=== PATIENT | male | born 1945 | race Caucasian/White ===

== ENCOUNTER → 2017-03-08 | Outpatient (CLI) | payer OTHER ==
[~2017-03-08] MED LIST: IOPAMIDOL (ISOVUE-300) 100 ML BTL ONE
== END ==
LOC: FIMAGING 10:15
PROVIDERS: ATTEND Physician Assistant Medical
DX: N28.89 Other specified disorders of kidney and ureter (principal); N28.1 Cyst of kidney, acquired; I86.1 Scrotal varices
CPT/HCPCS: 74178; Q9967; G0103

== ENCOUNTER → 2017-04-05 | Outpatient (CLI) | payer OTHER | LOC: BHFA 11:30 | PROVIDERS: ATTEND Internal Medicine Interventional Cardiology | DX: I49.3 Ventricular premature depolarization (principal); R00.2 Palpitations; I34.0 Nonrheumatic mitral (valve) insufficiency ==

== ENCOUNTER → 2017-04-07 | Outpatient (CLI) | payer OTHER ==
--- NOTE | 2017-04-07 13:35 | PDCARST ---
CAR Stress Test Results Type of Stress Test: Nuclear TM stress test Indication: abnormal ECG/preop Description of Procedure: After informed consent was obtained, pt was exercised according to Payam Protocol. Monitoring was performed with standard stress testing specialist electrode placement. Vital signs were monitored according to protocol throughout the procedure. STRESS EKG AND HEMODYNAMIC DATA. Exercise time: 7: 30 min. This is equivalent to: 8.6 METS. Resting heart rate: 77 bpm. Resting blood pressure: 142/74 mmHg. Resting O2 saturation: 98 %. Peak heart rate: 140 bpm. This is 93% of age predicted maximum heart rate response. Peak blood pressure: 154/74 mmHg. Exercise O2: 96 %. Arrhythmias: PVCs at rest, rare PVC with exertion, PVC triplet in recovery. Reason for termination: The test was stopped due to achieving target heart rate. Symptoms: The patient experienced no typical symptoms of angina during stress or recovery. STRESS TEST ANALYSIS. Baseline ECG: sinus rhythm. Stress ECG: sinus tachycardia. exercise induced ischemic ECG changes: no. Rhythm: rare PVCs noted during exercise and PVC triplet in recovery. Blood pressure: mild resting hypertension with normal blood pressure response to exercise. Exercise tolerance: The patient has normal exercise tolerance adjusted for age and gender. Symptoms: No exercise induced symptoms. Impression: Stress ECG negative for ischemia. The Guillen Treadmill Score is 7, consistent with low cardiovascular risk (<1% annual mortality). Occasional PVCs at rest. Rare PVCs with exertion. 1 PVC triplet in recovery. Conclusion: Await nuclear images.
== END ==
LOC: FIMAGING 11:29
PROVIDERS: ATTEND Internal Medicine Cardiovascular Disease
DX: Z01.810 Encounter for preprocedural cardiovascular examination (principal); E78.5 Hyperlipidemia, unspecified; I49.3 Ventricular premature depolarization
CPT/HCPCS: 78452; 93017; A9500

== ENCOUNTER 2017-04-15 06:53 | Inpatient (IN) | payer OTHER ==
[2017-04-07 12:14] LABS: % IMMATURE GRANULYOCYTES 0.5 % (0.0-1.1); ABSOLUTE IMMATURE GRANULOCYTES 0.04 10^3/uL (0.00-0.10); ADD DIFF? NO; ADD MORPH? NO; ADD SCAN? NO; ATYPICAL LYMPHOCYTE FLAG 20 (0-99); FRAGMENT RBC FLAG 0 (0-99); HEMATOCRIT 44.5 % (40.0-51.0); HEMOGLOBIN 14.9 g/dL (13.7-17.5); LEFT SHIFT FLG 0 (0-99); LIPEMIA HEMOLYSIS FLAG 80 (0-99); MEAN CELL HEMOGLOBIN 30.5 pg (27.9-34.1); MEAN CELL HEMOGLOBIN CONCENTR. 33.5 g/dL (32.4-36.7); MEAN PLATELET VOLUME 10.8 fL (8.7-11.7); PLATELET CLUMPS FLAG 10 (0-99); PLATELET COUNT 226 10^3/uL (150-400); RED BLOOD CELL COUNT 4.89 10^6/uL (4.40-6.38); RED CELL DISTRIBUTION WIDTH 12.4 % (11.5-15.2)
--- NOTE | 2017-04-14 16:05 | GHP ---
[f rep st] PREOP HISTORY AND PHYSICAL DATE OF ADMISSION: 04/15/2017 ADMISSION DIAGNOSIS: Right lower pole renal mass. HISTORY OF PRESENT ILLNESS: This is a 71-year-old gentleman, who presented with hematuria and otherw ise totally asymptomatic with respect to his renal history. He has had a 10 year smoking history and quit at age 32. He had not been evaluated for hematuria prior to seeing us and he had a CAT scan th at showed a 2.3 cm right lower pole mass concerning for possible malignancy. He also had a cystoscop y evaluation that showed he had BPH with an intravesical lobe and he may need to undergo a TUR of the prostate in the future. At the present time, he is admitted for a.m. surgery for robotic assisted r ight partial nephrectomy. MEDICATIONS: Include Advair, fish oil, lovastatin, and Symbicort. ALLERGIES: No known drug allergies. PAST SURGERY HISTORY: Back surgery. PAST MEDICAL HISTORY: Positive for asthma, BPH, bladder diverticulum, melanoma and varicocele. FAMILY HISTORY: Noncontributory. SOCIAL HISTORY: He has moderate alcohol consumption. He is and immunizations are up to date . REVIEW OF SYSTEMS: Negative cardiac, respiratory, GI, and endocrine. He does have nocturia. PHYSICAL EXAMINATION: VITAL SIGNS: Stable. CHEST: Clear. HEART: Regular rate and rhythm. ABDOM EN: Normal. No organomegaly, rebound or guarding. LOWER EXTREMITIES: Normal. LABORATORY DATA: He has had a PSA value of 1.4 in 2009, and 1.64 in 2017. ASSESSMENT/PLAN: At the present time, he is noted to have a right renal mass and he is admitted for robotic assisted right partial nephrectomy. Indication, complications, and risks have been discussed in detail. He also has atherosclerosis of the aorta and iliac vessels, and he has had a cardiac james arance for surgery by Mitzy Dorantes IV, MD and he is to be admitted for this procedure. /[id number]/MODL
[2017-04-15] MEDS ORDERED: ALBUTEROL 60 PUFFS/8 GM MDI IH PRN (07:18)
[2017-04-15] MEDS ORDERED: ceFAZolin 2 GM/DEXTROSE 100 ML IV ONE (07:20)
--- NOTE | 2017-04-15 07:20 | PDHPUP ---
History & Physical Update H&P update statement: This history and physical update is based on an assessment of the patient which was completed after admission or registration (within 24 hours), but prior to the surgery/procedure. H&P update: H&P reviewed & patient examined, no change in patient's condition since H&P completed
[2017-04-15] MEDS ORDERED: LR 1,000 ML IV ONE (07:38)
[2017-04-15] MEDS ORDERED: LIDOCAINE 1% 2 ML INJ ID PRN (07:38)
[2017-04-15] MEDS ORDERED: BUPIVACAINE 0.5% 30 ML SDV ONE (08:27)
[2017-04-15] MEDS ORDERED: THROMBIN (BOVINE) 5,000 UNIT VIAL TP ONE (08:27)
[2017-04-15] MEDS ORDERED: MANNITOL 20% 100 GM/500 ML BAG IV ONE (08:28)
[2017-04-15] MEDS ORDERED: NON-FORMULARY NEW DRUG (Triamcinolone Acetonide [Nasacort] 1 SPRAY) EACHNARE SCH (09:00)
[2017-04-15] MEDS ORDERED: MIDAZOLAM 2 MG/2 ML VIAL IVP ONE (09:04)
--- NOTE | 2017-04-15 09:05 | PDANEPAE ---
ANE History of Present Illness Right kidney tumor ANE Past Medical History - Cardiovascular History Hx Hypertension: No Hx Arrhythmias: No Hx Chest Pain: No Hx Coronary Artery / Peripheral Vascular Disease: No Hx CHF / Valvular Disease: No Hx Palpitations: No Cardiovascular History Comment: NO CP - Pulmonary History Hx COPD: No Hx Asthma/Reactive Airway Disease: Yes Hx Recent Upper Respiratory Infection: No Hx Oxygen in Use at Home: No Hx Sleep Apnea: No Sleep Apnea Screening Result - Last Documented: Negative Pulmonary History Comment: ASTHMA - Neurologic History Hx Cerebrovascular Accident: No Hx Seizures: No Hx Dementia: No - Endocrine History Hx Diabetes: No - Renal History Hx Renal Disorders: No - Liver History Hx Hepatic Disorders: No - Neurological & Psychiatric Hx Hx Neurological and Psychiatric Disorders: No - Cancer History Hx Cancer: No Cancer History Comment: MELANOMA 2011 - Congenital Disorder History Hx Congenital Disorders: No - GI History Hx Gastrointestinal Disorders: No - Other Health History Other Health History: LUMBAR DISC DEGEN. L CIATICA. SPINAL STENOSIS. SCOLIOSIS - Chronic Pain History Chronic Pain: Yes (SCIATICA L) - Surgical History Prior Surgeries: L4-L5 fusion 2015 Dr Lund. Rt shoulder Dr Rea 2010. DAKOTA HERNIA 2012. MELONOMA REM 2011. NASAL SURG 1992 ANE Review of Systems Review of Systems: - Exercise capacity METS (RN): 5 METS ANE Patient History - Allergies Allergies/Adverse Reactions: No Allergies [NKDA] Allergy (Verified 07/16/15 12:19) ENVIRONMENTAL Allergy (Uncoded 04/22/12 13:58) ITCHY EYES - Home Medications Home Medications: Atorvastatin Calcium [Lipitor 40 mg (*)] 40 mg PO DAILY 07/09/15 [Last Taken 11/25 05:40] Fluticasone/Salmeter 100/50Mcg [Advair 100/50 (*)] 1 puffs IH DAILY 07/09/15 [ Last Taken 04/15/17 05:40] Albuterol [Proventil Inhaler HFA (*)] 1 - 2 puffs IH DAILY PRN 03/23/17 [Last Taken 03/16/17] Cholecalciferol Vit D3 [Vitamin D3 (*)] 1,000 units PO DAILY 03/23/17 [Last Taken 04/08/17] Herbals/Supplements -Info Only 1 ea PO DAILY 03/23/17 [Last Taken 04/08/17] Seneca-3 Fatty Acids [Fish Oil 1000 mg (*)] 1,000 mg PO DAILY 03/23/17 [Last Taken 04/08/17] Psyllium Husk (with Sugar) [Metamucil Packet] 1 each PO DAILY 03/23/17 [Last Taken 04/08/17] Triamcinolone Acetonide [Nasacort] 1 spray EACHNARE DAILY 03/23/17 [Last Taken 04/14/17] - NPO status NPO Since - Liquids (Date): 04/14/17 NPO Since - Liquids (Time): 20:30 NPO Since - Solids (Date): 04/14/17 NPO Since - Solids (Time): 19:00 - Smoking Hx Smoking Status: Never smoked - Family Anes Hx Family Hx Anesthesia Complications: NONE ANE Labs/Vital Signs - Labs Result Diagrams: 04/07/17 12:05 - Vital Signs Blood Pressure: 134/87 Heart Rate: 68 Respiratory Rate: 16 O2 Sat (%): 95 Height: 180.34 cm Weight: 83.007 kg ANE Physical Exam - Airway Neck exam: FROM Mallampati Score: Class 2 Mouth exam: normal dental/mouth exam - Pulmonary Pulmonary: no respiratory distress - ASA Status ASA Status: II ANE Anesthesia Plan Anesthesia Plan: general endotracheal anesthesia
[2017-04-15] MEDS ORDERED: MIDAZOLAM 2 MG/2 ML VIAL ONE (09:06)
[2017-04-15] MEDS ORDERED: ROCURONIUM 100 MG/10 ML VIAL ONE (09:09)
[2017-04-15] MEDS ORDERED: LIDOCAINE 2% 5 ML SDV ONE (09:09)
[2017-04-15] MEDS ORDERED: HYDROmorphONE/DILAUDID 2 MG/ML INJ ONE (09:10)
[2017-04-15] MEDS ORDERED: fentaNYL 100 MCG/2 ML INJ ONE ×3 (09:10→12:24)
[2017-04-15] MEDS ORDERED: PROPOFOL 200 MG/20 ML VIAL ONE (09:10)
[2017-04-15] MEDS ORDERED: INDOCYANINE GREEN 25 MG VIAL ONE (09:50)
[2017-04-15] MEDS ORDERED: ROCURONIUM 50 MG/5 ML VIAL ONE (11:06)
[2017-04-15] MEDS ORDERED: THROMBIN(HUM PLAS)/FIBRINOG/CA 5 ML VIAL TP ONE ×2 (11:23→11:28)
[2017-04-15] MEDS ORDERED: SURGIFLO MATRIX KIT WITH THROMBIN TP ONE (11:36)
[2017-04-15] MEDS ORDERED: ALBUTEROL 200 PUFFS/18 GM MDI IH PRN (11:45)
[2017-04-15] MEDS ORDERED: NALOXONE HCL 0.4 MG/ML INJ IVP PRN (11:56)
[2017-04-15] MEDS ORDERED: ONDANSETRON 4 MG/2 ML VIAL IVP PRN ×2 (11:56→12:05)
[2017-04-15] MEDS ORDERED: PROMETHAZINE HCL 25 MG/ML INJ IVP PRN (11:56)
[2017-04-15] MEDS ORDERED: HYDROmorphONE/DILAUDID 1 MG/ML INJ IVP PRN (11:56)
[2017-04-15] MEDS ORDERED: ACETAMINOPHEN 325 MG TAB PO PRN (12:05)
[2017-04-15] MEDS ORDERED: ONDANSETRON DISINTEGRATING 4 MG TAB PO PRN (12:05)
--- NOTE | 2017-04-15 12:10 | POSTOPPROG ---
Post Op Note Date of Operation: 04/15/17 Surgeon: Jhony Potter Avionics Safety Inspector: Shala Anesthesia: GET(General Endotracheal) Pre-op Diagnosis: rt renal mass Post-op Diagnosis: same Procedure: RA- rt partial neph Findings: mass on sono, margins negative by fire fly Inf/Abcess present in the surg proc area at time of surgery?: No EBL: 50-100 Drains: Gregorio Ayala Specimen(s): sent and drain placed
--- NOTE | 2017-04-15 12:19 | POSTANESTH ---
Post Anesthetic Evaluation Cardiovascular Status: Normal, Stable Respiratory Status: Normal, Stable Level of Consciousness/Mental Status: Can Participate in Eval Pain Control: Adequate, Prn Tx Ordered Nausea/Vomiting Control: Adequate, Prn Tx Ordered Complications Possibly Related to Anesthesia: None Noted
[2017-04-15] MEDS ORDERED: ONDANSETRON 4 MG/2 ML VIAL ONE (12:24)
[2017-04-15] MEDS: fentaNYL 100 MCG/2 ML INJ IVP PRN ×2 (12:27→12:52)
[2017-04-15] MEDS: D5W 1/2 NS W/ 20 KCl/L 1,000 ML IV SCH ×2 (14:13→23:09)
[2017-04-15] MEDS: FLUTICASONE/SALMETER 100/50MCG DISKUS IH SCH (14:14)
[2017-04-15] MEDS: ATORVASTATIN CALCIUM 40 MG TAB PO SCH (14:14)
[2017-04-15] MEDS: CHOLECALCIFEROL VIT D3 1,000 UNITS TAB PO SCH (14:14)
[2017-04-15] MEDS: FLUTICASONE NASAL 120 SPRAYS/16 GM MDI EACHNARE SCH (14:14)
[2017-04-15] MEDS: HYDROCODONE/APAP 5/325 TAB PO PRN ×3 (15:16→23:07)
--- NOTE | 2017-04-15 15:44 | POSTOPPROG ---
Post Op Note Date of Operation: 04/15/17 Surgeon: Jhony Potter Anesthesia: LMA Pre-op Diagnosis: rt ureteral stone Procedure: ureteroscopy, laser, stent--dictated Inf/Abcess present in the surg proc area at time of surgery?: No Drains: Other (stent) Specimen(s): stone
--- NOTE | 2017-04-15 20:27 | GOP ---
[f rep st] OPERATIVE REPORT DATE OF OPERATION: 04/15/2017 SURGEON: Jhony Potter MD BENEFIT SPECIALIST: Carolyn Last CFA. ANESTHESIA: Dr. Marsh. PREOPERATIVE DIAGNOSIS: Right renal mass. POSTOPERATIVE DIAGNOSIS: Right renal mass. PROCEDURE PERFORMED: Right partial nephrectomy, robotic assisted. FINDINGS: SPECIMENS: Mass from right kidney. ESTIMATED BLOOD LOSS: Less than 150 mL by estimate. DESCRIPTION OF PROCEDURE: This gentleman underwent general anesthesia, was prepped and draped in nor mal sterile fashion. He was appropriately marked. He had a Hayes catheter placed preop because he had significant BPH with obstruction. Then with all sites padded and positioned in the appropriate posit ion for a right robotic-assisted partial nephrectomy, an Ioban placed over the abdominal site. Normal time-out was obtained, and then a Veress needle was placed in the supraumbilical site and his abdome n inflated to 15 mmHg pressure of carbon dioxide. Then placed two 8 mm ports and two 12 mm ports for access to the abdomen. Then with the monopolar scissors and bipolar instrument was able to take down the colon and identify the ureter, dissect the ureter up to where I could identify the gonadal vein going into the vena cava and then also the right renal artery and the right renal vein. They were dissected out. Then at that point, mobilized the lower pole of the kidney and took the fat off the kidney and sent that as a sep arate specimen and that was over the site. There was no apparent violation of the renal capsule. Of i nterest, he had no tumor exposed on the surface of the renal capsule. So, ultrasonography was perform ed to identify the tumor mass, and then I circumscribed it with an electrocautery. The mass by ultras ound had some cystic component to it as well as solid component, and it was approximately 2.3 cm in s ize diameter. At that point, indocyanine green was given. We gave a small amount to confirm the position of the vas culature of the kidney and then at that point, bulldogs were placed on the renal artery and gave more indocyanine green, and there was no significant increase in vascularity of the kidney. Impression is that of good vascular control of the renal artery. I did occlude the renal vein temporarily to make sure there was no filling and took that clamp off. I then excised the tumor and through the dissectio n, tried to intervene periodically to confirm that there was normal green-appearing tissue around the edge of the margin, the implication being that the margins were clear. Then at the end of removing t he mass, the base and all the margins appeared to have normal parenchymal tissue by both using the fi refly as well as the normal appearance. Then I used a 4-0 Monocryl to close the inner working vascular renal-collecting system and it appeare d to be watertight and hemostatic. Then I used an 0 Vicryl serpentine closure with interlocking over the locking Hem-o-loks to occlude the nephrotomy. I did 2 layers of that, and after removal of the cl amps, there was no significant bleeding identified. I did place Floseal and Surgicel over the site to try to provide hemostasis. I did place a 10 flat Gregorio-Ayala. The tumor was placed in a bag and th en it was withdrawn and sent separately from the perinephric fat. Then the fascial closure device was used to close the 12-mm port sites, and approximated the skin edges with 4-0 Monocryl intradermal. H e tolerated the procedure well. At the end of the procedure we did give another small dose of the indocyanine green and it showed hardik t there was good blood flow of the renal artery, renal vein, and kidney. SPECIMENS: Sent for pathologic assessment. /[id number]/MODL
[2017-04-15] MEDS: ZOLPIDEM TARTRATE 5 MG TAB PO PRN (21:57)
[2017-04-16] MEDS: HYDROCODONE/APAP 5/325 TAB PO PRN ×3 (02:53→20:37)
[2017-04-16 05:15] LABS: % IMMATURE GRANULYOCYTES 0.5 % (0.0-1.1); ABSOLUTE IMMATURE GRANULOCYTES 0.08 10^3/uL (0.00-0.10); ADD DIFF? NO; ADD MORPH? NO; ADD SCAN? NO; ATYPICAL LYMPHOCYTE FLAG 0 (0-99); FRAGMENT RBC FLAG 0 (0-99); HEMATOCRIT 37.3 % (40.0-51.0); HEMOGLOBIN 12.4 g/dL (13.7-17.5); LEFT SHIFT FLG 0 (0-99); LIPEMIA HEMOLYSIS FLAG 80 (0-99); MEAN CELL HEMOGLOBIN 30.2 pg (27.9-34.1); MEAN CELL HEMOGLOBIN CONCENTR. 33.2 g/dL (32.4-36.7); MEAN PLATELET VOLUME 10.6 fL (8.7-11.7); PLATELET CLUMPS FLAG 10 (0-99); PLATELET COUNT 210 10^3/uL (150-400)
[2017-04-16 05:48] LABS: ANION GAP 9 mEq/L (8-16); CALCIUM 8.9 mg/dL (8.5-10.4); CARBON DIOXIDE 24 mEq/l (22-31); CHLORIDE 104 mEq/L (97-110); GLOMERULAR FILTRATION RATE > 60; GLUCOSE 134 mg/dL (70-100); POTASSIUM 4.4 mEq/L (3.5-5.2); SODIUM 137 mEq/L (134-144)
[2017-04-16] MEDS: D5W 1/2 NS W/ 20 KCl/L 1,000 ML IV SCH (06:28)
[2017-04-16] MEDS: FLUTICASONE/SALMETER 100/50MCG DISKUS IH SCH (08:50)
[2017-04-16] MEDS: CHOLECALCIFEROL VIT D3 1,000 UNITS TAB PO SCH (13:50)
[2017-04-16] MEDS: ATORVASTATIN CALCIUM 40 MG TAB PO SCH (13:50)
[2017-04-16] MEDS: FLUTICASONE NASAL 120 SPRAYS/16 GM MDI EACHNARE SCH (13:50)
--- NOTE | 2017-04-16 17:17 | SOAPPROG ---
SOAP Progress Note Assessment/Plan: Assessment: Renal mass, right Acute POD 1, no PO intake and distended, no flatus Plan: continue care and consider DC tomorrow, path pending 04/16/17 17:14 Subjective: no flatus and distended Objective: Vital Signs Temp Pulse Resp BP Pulse Ox 36.6 C 77 18 140/86 H 92 04/16/17 16:16 04/16/17 16:16 04/16/17 16:16 04/16/17 16:16 04/16/17 16:16 Laboratory Results 04/16/17 05:06 04/16/17 05:06 04/15/17 04/16/17 04/17/17 05:59 05:59 05:59 Intake Total 5340 Output Total 2820 Balance 2520 Physical Exam - Physical Exam General Appearance: alert Respiratory: No respiratory distress Cardiac/Chest: regular rate, rhythm Abdomen: soft, distended Male Genitalia: normal genitalia Back: No CVA tenderness Skin: warm/dry Extremities: No calf tenderness Neuro/Psych: alert, oriented x 3 ICD10 Worksheet Patient Problems: Problems Problem Status Onset Renal mass, right Acute Arthrodesis status Acute Lumbar radiculitis Acute Lumbar stenosis Acute - ICD10 Problem Qualifiers (1) Renal mass, right
[2017-04-16] MEDS: ZOLPIDEM TARTRATE 5 MG TAB PO PRN (20:38)
[2017-04-17] MEDS: HYDROCODONE/APAP 5/325 TAB PO PRN ×4 (02:21→10:48)
--- NOTE | 2017-04-17 08:05 | SOAPPROG ---
SEBASTIAN Progress Note Assessment/Plan: Assessment: Renal mass, right Acute POD 2, advancing as expected Plan: DC today, path pending 04/17/17 08:27 Subjective: 90% better, passing flatus and hungry Objective: Vital Signs Temp Pulse Resp BP Pulse Ox 36.9 C 75 16 119/75 91 L 04/17/17 04:00 04/17/17 04:00 04/17/17 04:00 04/17/17 04:00 04/17/17 04:00 Laboratory Results 04/16/17 05:06 04/16/17 05:06 04/16/17 04/17/17 04/18/17 05:59 05:59 05:59 Intake Total 5340 275 Output Total 2820 580 Balance 2520 -305 Physical Exam - Physical Exam General Appearance: alert Neck: supple Respiratory: No respiratory distress Cardiac/Chest: regular rate, rhythm Abdomen: soft Back: No CVA tenderness Neuro/Psych: alert, oriented x 3 ICD10 Worksheet Patient Problems: Problems Problem Status Onset Renal mass, right Acute Arthrodesis status Acute Lumbar radiculitis Acute Lumbar stenosis Acute - ICD10 Problem Qualifiers (1) Renal mass, right
--- NOTE | 2017-04-17 08:43 | GDS ---
[f rep st] DISCHARGE SUMMARY ADMISSION DIAGNOSIS: Right renal mass. DISCHARGE DIAGNOSIS: Right renal mass. PROCEDURE DURING HOSPITALIZATION: Robotic-assisted partial nephrectomy, right side. HOSPITAL COURSE: This gentleman on the day of admission had the above procedure performed. He is di scharged home on postop day 2 and is to have followup with me in 3 weeks. Pathology pending. /[id number]/MODL
[2017-04-17] MEDS: CHOLECALCIFEROL VIT D3 1,000 UNITS TAB PO SCH (09:24)
[2017-04-17] MEDS: ATORVASTATIN CALCIUM 40 MG TAB PO SCH ×2 (09:24→09:29)
[2017-04-17] MEDS: FLUTICASONE/SALMETER 100/50MCG DISKUS IH SCH (09:26)
[2017-04-17] MEDS: FLUTICASONE NASAL 120 SPRAYS/16 GM MDI EACHNARE SCH (09:27)
--- NOTE | 2017-04-17 09:57 | ASMTCMCOM ---
CM Note CM Note Notes: Pt admitted for rt partial nephrectomy. Plan is DC today with no needs. Date Signed: 04/17/2017 09:56 AM Electronically Signed By:Asha Kent LCSW
[2017-04-17 11:25] VITALS: BP 138/79; PULSE 77; RESP 18; TEMP 98.2; O2SAT 92
--- NOTE | 2017-04-17 12:26 | ASDISCHSUM ---
Discharge Information Plan Status:Home with No Needs Medically Cleared to Leave: Discharge Date:04/17/2017 11:50 AM CM D/C Disposition:Home, Routine, Self-Care ADT D/C Disposition:Home, Routine, Self-Care Projected Discharge Date:04/17/2017 11:00 AM Transportation at D/C: Discharge Delay Reason: Follow-Up Date:04/17/2017 11:00 AM Discharge Slot: Final Diagnosis: Placement Information Patient Contact Information Contact Name:PHOEBE Relationship:Friend Address: Work Phone: City: [facility] Phone: State/Zip Code: Email: Financial Information Financial Class: Primary Plan Desc:MEDICARE OUTPATIENT Primary Plan Number:[id number] Secondary Plan Desc:[employer] Secondary Plan Number:[id number] Assessment Information [facility] CM Progress Note CM Note CM Note Notes: Pt admitted for rt partial nephrectomy. Plan is DC today with no needs. Date Signed: 04/17/2017 09:56 AM Electronically Signed By:Asha Kent LCSW Intervention Information Intervention Type:*RADHA-Signed Date of Service:04/16/2017 09:14 AM Patient Type:Observation Staff Member:Patricia Ching Hours: Discipline: Severity: Comment:
== END 2017-04-17 11:50 | disposition home or self-care (01) | DRG 657 ==
LOC: EEVIPCON 06:53 → INTOOBSV 06:53 → F3N 06:53 → F1N 13:40 → OBSVTOIN 04-16 17:33
PROVIDERS: ADMIT Specialist; ATTEND Specialist
PROC: 0TC68ZZ Extirpation of Matter from Right Ureter, Via Natural or Artificial Opening Endoscopic (ICD-10-PCS; principal; 2017-04-15 08:30)
PROC: 8E0W0CZ Robotic Assisted Procedure of Trunk Region, Open Approach (ICD-10-PCS; principal; 2017-04-15 08:30)
PROC: 0TB00ZX Excision of Right Kidney, Open Approach, Diagnostic (ICD-10-PCS; principal; 2017-04-15 08:30)
PROC: 0T9680Z Drainage of Right Ureter with Drainage Device, Via Natural or Artificial Opening Endoscopic (ICD-10-PCS; principal; 2017-04-15 08:30)
DX: D30.01 Benign neoplasm of right kidney (principal); N40.1 Benign prostatic hyperplasia with lower urinary tract symptoms; N13.8 Other obstructive and reflux uropathy; N20.1 Calculus of ureter
CPT/HCPCS: J0690; J1170; J2250; J2405; J2704; J3010

== ENCOUNTER 2017-05-14 11:47 | Inpatient (IN) | payer OTHER ==
[2017-05-14] MEDS ORDERED: ONDANSETRON 4 MG/2 ML VIAL IVP PRN (12:40)
[2017-05-14] MEDS ORDERED: ONDANSETRON DISINTEGRATING 4 MG TAB PO PRN (12:40)
[2017-05-14] MEDS ORDERED: HYDROmorphONE/DILAUDID 1 MG/ML INJ IVP PRN (13:32)
--- NOTE | 2017-05-14 14:09 | GHP ---
[f rep st] HISTORY AND PHYSICAL DATE OF ADMISSION: 05/14/2017 CHIEF COMPLAINT: Hematuria. HISTORY OF PRESENT ILLNESS: A pleasant 71-year-old male, history of asthma, melanoma, who recently underwent a right nephrectomy, 04/15/2017, presenting with hematuria. Pathology showed cystic nephroma. He states he was in his normal state of health up until today. Last Wednesday, he saw Dr. Potter in clinic , who said it was okay to exercise. He began lifting free weights this Wednesday and Wednesday without issue. He had a massive amount of red urine today. He did feel sweaty and dizzy this morning. He has been taking a baby aspirin daily. No fevers, chills, or sweats. No weight loss. No hematochezia or melena. No NSAIDs. Complains of right upper, lower crampy abdominal pain, 01/18. There are no aggravating or alleviating factors. No flank pain. No bruising. REVIEW OF SYSTEMS: I completed a 10-point review of systems, negative except as noted in the HPI. PAST MEDICAL HISTORY: 1. Renal mass noted on CT 03/07/2017, with subsequent nephrectomy 04/15/2017, positive for cystic nephroma. 2. Asthma. 3. Melanoma. 4. Nuclear stress test 04/07/2017, negative. PAST SURGICAL HISTORY: 1. Nephrectomy. 2. Bilateral inguinal hernia repair. 3. L4-L5 laminectomy. SOCIAL HISTORY: Lives in [place]. a year. Drinks 2 drinks a night. No tobacco or drugs. He is a retired police and fire dispatcher. Has 2 dogs. HOME MEDICATIONS: 1. Aspirin 81 mg daily. 2. Nasacort. 3. Metamucil. 4. Belden-3 herbal supplement. 5. Advair. 6. Vitamin D3. 7. Atorvastatin. 8. Albuterol. ALLERGIES: No known drug allergies. PHYSICAL EXAM: VITAL SIGNS: Temperature 36.4, blood pressure 162/82, heart rate in the 50s, respirations 18, 98% on room air. GENERAL: Well-appearing male, lying in bed, no acute distress. HEENT: PERRLA. EOMI. Oropharynx clear. CV: Regular rate and rhythm. No murmurs, gallops, rubs. LUNGS: Clear to auscultation bilaterally. ABDOMEN: Soft, nontender, nondistended. No CVA tenderness. No hematoma over abdomen or flank. GI: No Hayes. MUSCULOSKELETAL: 5/5 upper, lower extremity strength. NEURO: 2 through 12 intact. PSYCH: Alert and oriented x3. LABS: WBCs 14, hemoglobin 13, hematocrit 39, baseline is 44, platelets 229. BMP is pending. ASSESSMENT AND PLAN: 1. Hematuria: Concern for postoperative bleeding. We will hold aspirin. Checking a stat CT. Urology to consult. 2. Acute abdominal pain: Again, concern for a possible bleed. Treat with IV Dilaudid. 3. Asthma. Continue home inhalers. 4. Benign nephroma: s/p radical nephrectomy 5. Diet: N.p.o. until scan back. 6. DVT prophylaxis: SCDs given hematuria. 7. Disposition: Patient warrants observation admission given acute hematuria, warranting further imaging and Urology consult. /[id number]/MODL MTDD
[2017-05-14] MEDS ORDERED: IOPAMIDOL (ISOVUE 370) 100 ML BTL IV ONE (14:25)
--- NOTE | 2017-05-14 14:34 | SOAPPROG ---
SOAP Progress Note Assessment/Plan: Assessment: Gross hematuria 29 days post partial right nephrectomy for cystic nephroma Plan: Will await imaging to assess for abdominal/renal bleed. If no obvious cause of bleed and no large clot in bladder, consider d/c home once stable. Will avoid CBI for now since he is emptying appropriately. Will discuss with Dr Edwards, pneumatic system conveyor operator for urology. 05/14/17 14:32 Subjective: Pt out for imaging. Objective: Vital Signs Temp Pulse Resp BP Pulse Ox 36.4 C 57 L 18 162/86 H 98 05/14/17 12:35 05/14/17 12:35 05/14/17 12:35 05/14/17 12:35 05/14/17 12:35 Laboratory Results 05/14/17 13:15 05/14/17 13:15 ICD10 Worksheet Patient Problems: Problems Problem Status Onset Arthrodesis status Acute Lumbar radiculitis Acute Lumbar stenosis Acute Renal mass, right Acute
--- NOTE | 2017-05-14 14:34 | SOAPPROG ---
SOAP Progress Note Assessment/Plan: Assessment: Gross hematuria 29 days post partial right nephrectomy for cystic nephroma Plan: Will await imaging to assess for abdominal/renal bleed. If no obvious cause of bleed and no large clot in bladder, consider d/c home once stable. Will avoid CBI for now since he is emptying appropriately. Will discuss with Dr Edwards, battery container finishing hand for urology. 05/14/17 14:32 Subjective: Pt out for imaging. Objective: Vital Signs Temp Pulse Resp BP Pulse Ox 36.4 C 57 L 18 162/86 H 98 05/14/17 12:35 05/14/17 12:35 05/14/17 12:35 05/14/17 12:35 05/14/17 12:35 Laboratory Results 05/14/17 13:15 05/14/17 13:15 ICD10 Worksheet Patient Problems: Problems Problem Status Onset Arthrodesis status Acute Lumbar radiculitis Acute Lumbar stenosis Acute Renal mass, right Acute
--- NOTE | 2017-05-14 14:34 | SOAPPROG ---
SOAP Progress Note Assessment/Plan: Assessment: Gross hematuria 29 days post partial right nephrectomy for cystic nephroma Plan: Will await imaging to assess for abdominal/renal bleed. If no obvious cause of bleed and no large clot in bladder, consider d/c home once stable. Will avoid CBI for now since he is emptying appropriately. Will discuss with Dr Edwards, interventional radiology rn for urology. 05/14/17 14:32 Subjective: Pt out for imaging. Objective: Vital Signs Temp Pulse Resp BP Pulse Ox 36.4 C 57 L 18 162/86 H 98 05/14/17 12:35 05/14/17 12:35 05/14/17 12:35 05/14/17 12:35 05/14/17 12:35 Laboratory Results 05/14/17 13:15 05/14/17 13:15 ICD10 Worksheet Patient Problems: Problems Problem Status Onset Arthrodesis status Acute Lumbar radiculitis Acute Lumbar stenosis Acute Renal mass, right Acute
[2017-05-14] MEDS: HYDROmorphONE/DILAUDID 1 MG/ML INJ IVP PRN ×4 (15:47→22:31)
[2017-05-14] MEDS: NS 1,000 ML IV SCH (18:56)
[2017-05-14] MEDS ORDERED: LIDOCAINE 2% JELLY 20 ML (UROJECT) UR ONE (19:45)
[2017-05-14] MEDS ORDERED: ALBUTEROL 60 PUFFS/8 GM MDI IH PRN (19:52)
[2017-05-14] MEDS ORDERED: NON-FORMULARY NEW DRUG (Triamcinolone Acetonide [Nasacort] 1 SPRAY) EACHNARE SCH (21:00)
[2017-05-14] MEDS: FLUTICASONE NASAL 120 SPRAYS/16 GM MDI EACHNARE SCH (22:32)
[2017-05-15] MEDS: HYDROmorphONE/DILAUDID 1 MG/ML INJ IVP PRN ×4 (00:31→11:42)
--- NOTE | 2017-05-15 07:51 | SOAPPROG ---
SOAP Progress Note Assessment/Plan: Assessment: Benign cystic nephroma Acute one month post op and acute bleed, reviewed CTA and no active bleeding yet no contrast in clot filled renal pelvis , Creat up to 1.3 and HCT drifting down Hematuria Acute Related to delayed post op bleed into renal collecting system -- right side Plan: continue pain control, avoid anticoagulation, irrigate barber as needed, assess labs. 05/15/17 08:08 Subjective: doing well, onset of bleeding Larry midmorning. mild flank pain today yet not terrible. glad for barber. Objective: Vital Signs Temp Pulse Resp BP Pulse Ox 36.8 C 71 16 135/69 H 93 05/15/17 02:58 05/15/17 06:34 05/15/17 06:34 05/15/17 06:34 05/15/17 06:34 Laboratory Results 05/15/17 04:38 05/15/17 04:38 05/14/17 05/15/17 05/16/17 05:59 05:59 04:59 Intake Total 1285 Output Total 1175 Balance 110 Physical Exam - Physical Exam General Appearance: alert Neck: supple Respiratory: No respiratory distress Cardiac/Chest: regular rate, rhythm Abdomen: No guarding Extremities: No calf tenderness Neuro/Psych: alert, oriented x 3 ICD10 Worksheet Patient Problems: Problems Problem Status Onset Benign cystic nephroma Acute Hematuria Acute Arthrodesis status Acute Lumbar radiculitis Acute Lumbar stenosis Acute Renal mass, right Acute - ICD10 Problem Qualifiers (1) Benign cystic nephroma (2) Hematuria
[2017-05-15] MEDS ORDERED: Herbals/Supplements -Info Only PO SCH (09:00)
[2017-05-15] MEDS: ATORVASTATIN CALCIUM 40 MG TAB PO SCH (09:04)
[2017-05-15] MEDS: PSYLLIUM METAMUCIL 1 PKT PO SCH (09:04)
[2017-05-15] MEDS: OMEGA-3 FATTY ACIDS 1,000 MG CAP PO SCH (09:04)
[2017-05-15] MEDS: FLUTICASONE/SALMETER 100/50MCG DISKUS IH SCH (09:05)
[2017-05-15] MEDS: CHOLECALCIFEROL VIT D3 1,000 UNITS TAB PO SCH (09:05)
--- NOTE | 2017-05-15 09:59 | HOSPPROG ---
Hospitalist Progress Note Assessment/Plan: #Right renal pelvis clot: subsequent recent nephrectomy. Hold ASA, irrigation as needed. H/H down a bit, BP stable. Urology on board #ANIL: due to clots, IV contrast. Cont IVFs. Making good urine #Acute RUQ pain: due to #1. PRN IV opioids #Diet: clears #DVT ppx: SCDs #Disp: warrants inpatient admission with ongoing hematuria, requiring serial H/ Hs, possible urologic intervention Subjective: pain improved Objective: Vital Signs Temp Pulse Resp BP Pulse Ox 36.8 C 72 16 133/70 H 94 05/15/17 07:47 05/15/17 07:47 05/15/17 07:47 05/15/17 07:47 05/15/17 07:47 Laboratory Results 05/15/17 04:38 05/15/17 04:38 05/14/17 05/15/17 05/16/17 05:59 05:59 04:59 Intake Total 1285 Output Total 1175 Balance 110 - Physical Exam Constitutional: no apparent distress Eyes: PERRL Ears, Nose, Mouth, Throat: moist mucous membranes Cardiovascular: regular rate and rhythym, no murmur, rub, or gallop Respiratory: no respiratory distress Gastrointestinal: normoactive bowel sounds, soft, non-tender abdomen Genitourinary: barber in urethra (sangious urine) Skin: warm Musculoskeletal: full muscle strength Neurologic: AAOx3, CN II-XII Intact Psychiatric: interacting appropriately ICD10 Worksheet Patient Problems: Problems Problem Status Onset Benign cystic nephroma Acute Hematuria Acute Arthrodesis status Acute Lumbar radiculitis Acute Lumbar stenosis Acute Renal mass, right Acute
--- NOTE | 2017-05-15 14:06 | PDMN ---
Medical Necessity Medical necessity: C/M review: est. > 2 MN LOS for eval and TX of acute and persistent - hematuria, right renal pelvis clot, acute kidney injury, RUQ pain requiring ongoing IV fluids, IV pain medications, continuous bladder irrigation , comorbid recent right partial nephrectomy per 05/15/2017 Hospitalist progress note.
[2017-05-15] MEDS: oxyCODONE IR 5 MG TAB PO PRN (18:02)
[2017-05-15] MEDS: NS 1,000 ML IV SCH (19:35)
[2017-05-15] MEDS: FLUTICASONE NASAL 120 SPRAYS/16 GM MDI EACHNARE SCH (19:36)
[2017-05-15] MEDS: ACETAMINOPHEN 325 MG TAB PO PRN (19:41)
[2017-05-16] MEDS: NS 1,000 ML IV SCH (03:44)
[2017-05-16] MEDS: FLUTICASONE/SALMETER 100/50MCG DISKUS IH SCH (09:16)
--- NOTE | 2017-05-16 10:12 | HOSPPROG ---
Hospitalist Progress Note Assessment/Plan: #Right renal pelvis clot: subsequent recent nephrectomy. Hold ASA, irrigation as needed. H/H down a bit, BP stable #ANIL: due to clots, IV contrast. Cont IVFs. Making good urine #Acute RUQ pain: due to #1. Minimal pain today #Diet: ADAT #DVT ppx: SCDs #Disp: warrants inpatient admission with ongoing hematuria, requiring serial H/ Hs, possible urologic intervention Subjective: no abd pain today. Only needed APAP last night Objective: Vital Signs Temp Pulse Resp BP Pulse Ox 37.0 C 74 16 124/61 H 93 05/16/17 09:21 05/16/17 09:21 05/16/17 09:21 05/16/17 09:21 05/16/17 09:21 Laboratory Results 05/16/17 04:48 05/16/17 04:48 05/15/17 05/16/17 05/17/17 06:59 05:59 05:59 Intake Total Output Total Balance - Physical Exam Constitutional: no apparent distress Eyes: PERRL Ears, Nose, Mouth, Throat: moist mucous membranes Cardiovascular: regular rate and rhythym, no murmur, rub, or gallop Respiratory: no respiratory distress Gastrointestinal: normoactive bowel sounds, soft, non-tender abdomen Genitourinary: barber in urethra (bloody urine) Skin: warm Musculoskeletal: full muscle strength Neurologic: AAOx3, CN II-XII Intact Psychiatric: interacting appropriately ICD10 Worksheet Patient Problems: Problems Problem Status Onset Benign cystic nephroma Acute Hematuria Acute Arthrodesis status Acute Lumbar radiculitis Acute Lumbar stenosis Acute Renal mass, right Acute
--- NOTE | 2017-05-16 12:34 | SOAPPROG ---
SOAP Progress Note Assessment/Plan: Assessment: stable, anemia, no or minimal pain Plan: labs, advance diet 05/16/17 12:32 Objective: Vital Signs Temp Pulse Resp BP Pulse Ox 37.0 C 74 16 124/61 H 93 05/16/17 09:21 05/16/17 09:21 05/16/17 09:21 05/16/17 09:21 05/16/17 09:21 Laboratory Results 05/16/17 04:48 05/16/17 04:48 05/15/17 05/16/17 05/17/17 06:59 05:59 05:59 Intake Total Output Total Balance Physical Exam - Physical Exam Neck: non-tender, full range of motion Respiratory: chest non-tender, lungs clear, normal breath sounds Abdomen: non-tender Male Genitalia: deferred Skin: normal color Extremities: non-tender ICD10 Worksheet Patient Problems: Problems Problem Status Onset Benign cystic nephroma Acute Hematuria Acute Arthrodesis status Acute Lumbar radiculitis Acute Lumbar stenosis Acute Renal mass, right Acute
[2017-05-16] MEDS: OMEGA-3 FATTY ACIDS 1,000 MG CAP PO SCH (13:44)
[2017-05-16] MEDS: PSYLLIUM METAMUCIL 1 PKT PO SCH (13:45)
[2017-05-16] MEDS: ATORVASTATIN CALCIUM 40 MG TAB PO SCH (13:45)
[2017-05-16] MEDS: CHOLECALCIFEROL VIT D3 1,000 UNITS TAB PO SCH (13:45)
--- NOTE | 2017-05-16 15:32 | ASMTCMCOM ---
CM Note CM Note Notes: Pt admitted for gross hematuria. Anticipate pt will have no DC needs. C/M available if needs change. Date Signed: 05/16/2017 03:32 PM Electronically Signed By:Asha Kent LCSW
[2017-05-16] MEDS: ACETAMINOPHEN 325 MG TAB PO PRN (16:53)
[2017-05-16] MEDS: oxyCODONE IR 5 MG TAB PO PRN (19:07)
[2017-05-16] MEDS: FLUTICASONE NASAL 120 SPRAYS/16 GM MDI EACHNARE SCH (20:05)
[2017-05-17] MEDS: oxyCODONE IR 5 MG TAB PO PRN ×2 (03:10→04:27)
[2017-05-17] MEDS: NS 1,000 ML IV SCH ×3 (04:28→23:44)
[2017-05-17] MEDS: FLUTICASONE/SALMETER 100/50MCG DISKUS IH SCH (09:18)
--- NOTE | 2017-05-17 13:35 | SOAPPROG ---
[facility] Progress Note Assessment/Plan: Assessment: Benign cystic nephroma Acute one month post op and acute bleed, reviewed CTA and no active bleeding yet no contrast in clot filled renal pelvis , Creat up to 1.3 and HCT 29 Hematuria Acute Related to delayed post op bleed into renal collecting system -- right side Plan: continue pain control, avoid anticoagulation, irrigate barber as needed, assess labs. 05/17/17 13:45 Subjective: doing well Objective: Vital Signs Temp Pulse Resp BP Pulse Ox 36.6 C 62 18 139/73 H 93 05/17/17 08:27 05/17/17 11:23 05/17/17 11:23 05/17/17 11:23 05/17/17 11:23 Laboratory Results 05/17/17 05:32 05/17/17 05:32 05/16/17 05/17/17 05/18/17 05:59 05:59 05:59 Intake Total 1450 Output Total 850 275 Balance 600 -275 Physical Exam - Physical Exam General Appearance: alert Neck: normal inspection Respiratory: No respiratory distress Abdomen: non-tender Back: No CVA tenderness Extremities: No calf tenderness Neuro/Psych: alert, oriented x 3 ICD10 Worksheet Patient Problems: Problems Problem Status Onset Benign cystic nephroma Acute Hematuria Acute Arthrodesis status Acute Lumbar radiculitis Acute Lumbar stenosis Acute Renal mass, right Acute - ICD10 Problem Qualifiers (1) Benign cystic nephroma (2) Hematuria
[2017-05-17] MEDS: OMEGA-3 FATTY ACIDS 1,000 MG CAP PO SCH (14:02)
[2017-05-17] MEDS: ATORVASTATIN CALCIUM 40 MG TAB PO SCH (14:03)
[2017-05-17] MEDS: CHOLECALCIFEROL VIT D3 1,000 UNITS TAB PO SCH (14:04)
--- NOTE | 2017-05-17 14:05 | HOSPPROG ---
Hospitalist Progress Note Assessment/Plan: #Right renal pelvis clot: improved with CBI overnight. H/H down a bit, BP stable #ANIL: cr up to 1.3 today. Due clots, IV contrast. Cont IVFs. Making good urine #Acute RUQ pain: due to #1. Minimal pain today #Diet: ADAT #DVT ppx: SCDs #Disp: warrants inpatient admission with ongoing hematuria, requiring serial H/ Hs, possible urologic intervention Subjective: had RUQ pain last night relieved with oxycodone Objective: Vital Signs Temp Pulse Resp BP Pulse Ox 36.6 C 62 18 139/73 H 93 05/17/17 08:27 05/17/17 11:23 05/17/17 11:23 05/17/17 11:23 05/17/17 11:23 Laboratory Results 05/17/17 05:32 05/17/17 05:32 05/16/17 05/17/17 05/18/17 05:59 05:59 05:59 Intake Total 1450 Output Total 850 275 Balance 600 -275 - Physical Exam Constitutional: no apparent distress Eyes: PERRL Ears, Nose, Mouth, Throat: moist mucous membranes Cardiovascular: regular rate and rhythym Respiratory: no respiratory distress Gastrointestinal: normoactive bowel sounds, No soft, non-tender abdomen Genitourinary: barber in urethra (urine less bloody today) Skin: warm Musculoskeletal: full muscle strength Neurologic: AAOx3 Psychiatric: interacting appropriately ICD10 Worksheet Patient Problems: Problems Problem Status Onset Benign cystic nephroma Acute Hematuria Acute Arthrodesis status Acute Lumbar radiculitis Acute Lumbar stenosis Acute Renal mass, right Acute
[2017-05-17] MEDS: PSYLLIUM METAMUCIL 1 PKT PO SCH (14:08)
[2017-05-17] MEDS: FLUTICASONE NASAL 120 SPRAYS/16 GM MDI EACHNARE SCH (21:33)
[2017-05-18 08:20] VITALS: BP 154/81; RESP 18; TEMP 98.3; O2SAT 95
[2017-05-18] MEDS: FLUTICASONE/SALMETER 100/50MCG DISKUS IH SCH (08:48)
[2017-05-18] MEDS: OMEGA-3 FATTY ACIDS 1,000 MG CAP PO SCH (08:49)
[2017-05-18] MEDS: CHOLECALCIFEROL VIT D3 1,000 UNITS TAB PO SCH (08:49)
[2017-05-18] MEDS: ATORVASTATIN CALCIUM 40 MG TAB PO SCH (08:49)
[2017-05-18] MEDS: PSYLLIUM METAMUCIL 1 PKT PO SCH (08:49)
--- NOTE | 2017-05-18 12:03 | GDS ---
[f rep st] DISCHARGE SUMMARY PREOPERATIVE DIAGNOSIS: Hematuria. POSTOPERATIVE DIAGNOSIS: Hematuria. BRIEF HPI: This is a pleasant gentleman who was seen in our office just under 1 month postop of a be nign cystic nephroma for which he had undergone a partial right nephrectomy with Dr. Potter without di fficulty. He presented in our office with gross hematuria, dizziness, and upon imaging was found to have clot, not actively bleeding, in his right kidney, along with some hematuria. He has responded to CBI, pain control, and is being discharged home in good condition, voiding well, without active blood in his urine. DISCHARGE INSTRUCTIONS: We will have him repeat a BMP and a CBC next week. Follow up with our offic e in 3 weeks. /[id number]/MODL
--- NOTE | 2017-05-18 12:10 | ASDISCHSUM ---
Discharge Information Plan Status:Home with No Needs Medically Cleared to Leave:05/17/2017 Discharge Date:05/17/2017 CM D/C Disposition:Home, Routine, Self-Care ADT D/C Disposition:Home, Routine, Self-Care Projected Discharge Date:05/18/2017 01:00 PM Transportation at D/C: Discharge Delay Reason: Follow-Up Date:05/18/2017 01:00 PM Discharge Slot: Final Diagnosis:Gross hematuria Placement Information Patient Contact Information Contact Name:PHOEBE Relationship:Friend Address:[address] [phone] ALT# [place] [phone] Work Phone: City: [facility] Phone: [facility]/Zip Code: Email: Financial Information Financial Class: Primary Plan Desc:MEDICARE INPATIENT Primary Plan Number:[id number] Secondary Plan Desc:HUMANA Secondary Plan Number:[id number] Assessment Information [facility] CM Progress Note CM Note CM Note Notes: Pt admitted for gross hematuria. Anticipate pt will have no DC needs. C/M available if needs change. Date Signed: 05/16/2017 03:32 PM Electronically Signed By:Asha Kent LCSW Intervention Information Intervention Type:*RADHA-Signed Date of Service:05/14/2017 04:10 PM Patient Type:Observation Staff Member:Patricia Ching Hours: Discipline: Severity: Comment:
--- NOTE | 2017-05-18 12:10 | ASDISCHSUM ---
Discharge Information Plan Status:Home with No Needs Medically Cleared to Leave:05/17/2017 Discharge Date:05/17/2017 CM D/C Disposition:Home, Routine, Self-Care ADT D/C Disposition:Home, Routine, Self-Care Projected Discharge Date:05/18/2017 01:00 PM Transportation at D/C: Discharge Delay Reason: Follow-Up Date:05/18/2017 01:00 PM Discharge Slot: Final Diagnosis:Gross hematuria Placement Information Patient Contact Information Contact Name:PHOEBE Relationship:Friend Address:[address] [phone] ALT# [address] [phone] Work Phone: City: [facility] Phone: [facility]/Zip Code: Email: Financial Information Financial Class: Primary Plan Desc:MEDICARE INPATIENT Primary Plan Number:[id number] Secondary Plan Desc:HUMANA Secondary Plan Number:[id number] Assessment Information [facility] CM Progress Note CM Note CM Note Notes: Pt admitted for gross hematuria. Anticipate pt will have no DC needs. C/M available if needs change. Date Signed: 05/16/2017 03:32 PM Electronically Signed By:Asha Kent LCSW Intervention Information Intervention Type:*RADHA-Signed Date of Service:05/14/2017 04:10 PM Patient Type:Observation Staff Member:Patricia Ching Hours: Discipline: Severity: Comment:
--- NOTE | 2017-05-18 12:10 | ASDISCHSUM ---
Discharge Information Plan Status:Home with No Needs Medically Cleared to Leave:05/17/2017 Discharge Date:05/17/2017 CM D/C Disposition:Home, Routine, Self-Care ADT D/C Disposition:Home, Routine, Self-Care Projected Discharge Date:05/18/2017 01:00 PM Transportation at D/C: Discharge Delay Reason: Follow-Up Date:05/18/2017 01:00 PM Discharge Slot: Final Diagnosis:Gross hematuria Placement Information Patient Contact Information Contact Name:PHOEBE Relationship:Friend Address:[address] [phone] ALT# [place] [phone] Work Phone: City: [facility] Phone: [facility]/Zip Code: Email: Financial Information Financial Class: Primary Plan Desc:MEDICARE INPATIENT Primary Plan Number:[id number] Secondary Plan Desc:HUMANA Secondary Plan Number:[id number] Assessment Information [facility] CM Progress Note CM Note CM Note Notes: Pt admitted for gross hematuria. Anticipate pt will have no DC needs. C/M available if needs change. Date Signed: 05/16/2017 03:32 PM Electronically Signed By:Asha Kent LCSW Intervention Information Intervention Type:*RADHA-Signed Date of Service:05/14/2017 04:10 PM Patient Type:Observation Staff Member:Patricia Ching Hours: Discipline: Severity: Comment:
[2017-05-18 14:18] VITALS: PULSE 77
--- NOTE | 2017-05-18 14:48 | HOSPPROG ---
Hospitalist Progress Note Assessment/Plan: 71 yo M with hx of benign cystic nephroma 1 month post op presenting with hematuria # hematuria: 2/2 right renal pelvis clot, s/p CBI, today urinating without issue , barber out # lana: stable to slightly improved, continue to follow # left knee swelling: has chronic knee arthritis, swelling with some pain but good mobility, no erythema or suggestion of infection, continue to monitor and recommend f/u with orthopedics, ice and elevation for now # dispo: dc home today per urology Patient new to my care. Old records reviewed and summarized as above. Subjective: no significant overnight events, patient feeling well, eager to go home, has some swelling in his knee but able to walk and pain only mild Objective: Vital Signs Temp Pulse Resp BP Pulse Ox 36.8 C 77 18 154/81 H 95 05/18/17 08:17 05/18/17 09:35 05/18/17 08:17 05/18/17 08:17 05/18/17 09:35 Laboratory Results 05/18/17 10:42 05/17/17 05:32 05/17/17 05/18/17 05/19/17 05:59 05:59 05:59 Intake Total 3661 828 2144 Output Total 850 6025 250 Balance 600 -5675 750 awake alert nad anicteric op clear rrr no mrg cta b soft nt nd left knee edema without erythema or significant ttp, rom intact oriented appropriate - Time Spent With Patient Time Spent with Patient: greater than 35 minutes Time Spent with Patient: Greater than 35 minutes spent on this patients care, greater than 50% of time spent counseling, educating, and coordinating care regarding the above mentioned plan. ICD10 Worksheet Patient Problems: Problems Problem Status Onset Arthrodesis status Acute Benign cystic nephroma Acute Hematuria Acute Lumbar radiculitis Acute Lumbar stenosis Acute Renal mass, right Acute
== END 2017-05-18 12:22 | disposition home or self-care (01) | DRG 699 ==
LOC: F1N 12:16 → INTOOBSV 12:16 → OBSVTOIN 05-15 13:11
PROVIDERS: ADMIT Internal Medicine; ATTEND Internal Medicine
DX: T81.71 Complication of artery following a procedure, not elsewhere classified (principal); N28.0 Ischemia and infarction of kidney; J45.909 Unspecified asthma, uncomplicated; Z90.5 Acquired absence of kidney
CPT/HCPCS: 97161-GP; 97166-GO; G0378; G8978-GP-CH; G8979-GP-CH; G8980-GP-CH; G8987-GO-CI; G8988-GO-CI; G8989-GO-CI; J1170; Q9967

== ENCOUNTER → 2017-06-29 | Outpatient (CLI) | payer OTHER | LOC: FIMAGING 12:48 | PROVIDERS: ATTEND Specialist | DX: Z90.5 Acquired absence of kidney (principal) ==

== ENCOUNTER → 2017-12-08 | Outpatient (CLI) | payer OTHER ==
[~2017-12-08] MED LIST changes: -IOPAMIDOL (ISOVUE-300) 100 ML BTL ONE; +IOPAMIDOL (ISOVUE-300) 150 ML BTL ONE
== END ==
LOC: FIMAGING 09:11
PROVIDERS: ATTEND Specialist
DX: R31.29 Other microscopic hematuria (principal); N40.0 Benign prostatic hyperplasia without lower urinary tract symptoms; N32.3 Diverticulum of bladder; Z98.890 Other specified postprocedural states; Z90.5 Acquired absence of kidney
CPT/HCPCS: 74178; 76770; Q9967